=== PATIENT | female | born 1990 ===

== ENCOUNTER 2017-10-10 06:31 | Emergency (ER) | payer SELFPAY ==
[~2017-10-10] VITALS: Ht 177.8 cm; Wt 60.0 kg
[2017-10-10 06:44] VITALS: BP 131/80; PULSE 86; RESP 18; TEMP 97.9; O2SAT 100
[2017-10-10 07:06] LABS: AUTOMATED NEUTROPHIL # 2.3 TH/MM3 (1.8-7.7); BASOPHIL % 0.7 % (0.0-2.0); EOSINOPHIL % 0.8 % (0.0-4.0); HEMATOCRIT 32.1 % (35.0-46.0); HEMOGLOBIN 10.4 GM/DL (11.6-15.3); LYMPH % 28.6 % (9.0-44.0); MEAN CELL VOLUME 80.2 FL (80.0-100.0); MEAN CORPUSCULAR HEMOGLOBIN 26.1 PG (27.0-34.0); MEAN CORPUSCULAR HGB CONC 32.5 % (32.0-36.0); MEAN PLATELET VOLUME 7.6 FL (7.0-11.0); MONO % 7.1 % (0.0-8.0); MONOCYTE # 0.3 TH/MM3 (0-0.9); NEUT % 62.8 % (16.0-70.0); PLATELET COUNT 303 TH/MM3 (150-450); RED CELL DISTRIBUTION WIDTH 17.2 % (11.6-17.2); WHITE BLOOD COUNT 3.7 TH/MM3 (4.0-11.0)
--- NOTE | 2017-10-10 07:29 | PD ---
HPI Chief Complaint: Psychiatric Symptoms Time Seen by Provider: 07:25 Travel History International Travel<30 days: No Contact w/Intl Traveler<30days: No Traveled to known affect area: No History of Present Illness HPI 27-year-old female presents emergency department as a [place] act from [facility] for suicidal ideations. Patient says that her fianc broke up with her several days ago by phone call and she has not spoken with him since then. Says that she was talking with her friends last night when the police department showed up to [place] act her. Patient admits to discussing suicidal ideations however, she does not have a plan. Says she has a long history of suicide ideations but she has no intention acting upon these. She says that she has "lost" many people in her lives and she does not want to do the same to her family and friends. She denies chronic medical issues or medication use. She does admit to drinking alcohol last night. Denies any other illicit drug use. PFSH Past Medical History Medical History: Denies Significant Hx Diminished Hearing: No Tetanus Vaccination: Unknown Influenza Vaccination: No ?: Unknown LMP: CURRENT Past Surgical History Surgical History: No Previous Surgery Social History Alcohol Use: Yes (WEEKENDS 6-10 DRINKS ONE NIGHT PER WEEKEND) Tobacco Use: Yes (1PPD) Substance Use: No Allergies-Medications (Allergen,Severity, Reaction): Coded Allergies: No Known Allergies (Unverified , 10/10/17) Review of Systems Except as stated in HPI: all other systems reviewed are Neg Physical Exam Narrative GENERAL: Well-developed, well-nourished, slightly tearful and anxious SKIN: Focused skin assessment warm/dry. HEAD: Atraumatic. Normocephalic. EYES: Pupils equal and round. No scleral icterus. No injection or drainage. ENT: No nasal bleeding or discharge. Mucous membranes pink and moist. NECK: Trachea midline. No JVD. CARDIOVASCULAR: Regular rate and rhythm. No murmur appreciated. RESPIRATORY: No accessory muscle use. Clear to auscultation. Breath sounds equal bilaterally. No CVA tenderness MUSCULOSKELETAL: No obvious deformities. No clubbing. No cyanosis. No edema. NEUROLOGICAL: Awake and alert. No obvious cranial nerve deficits. Motor grossly within normal limits. Normal speech. PSYCHIATRIC: Tearful and slightly anxious. Data Data Last Documented VS Vital Signs Date Time Temp Pulse Resp B/P (MAP) Pulse Ox O2 Delivery O2 Flow Rate FiO2 10/10/17 06:44 97.9 86 18 131/80 (97) 100 Orders Orders Complete Blood Count With Diff (10/10/17 06:52) Comprehensive Metabolic Panel (10/10/17 06:52) Beta Hcg (Quant/Titer) (10/10/17 06:52) Ed Urine Pregnancytest Poc (10/10/17 06:52) Psych Screen (10/10/17 06:52) Drug Screen, Random Urine (10/10/17 06:52) Alcohol (Ethanol) (10/10/17 06:52) Salicylates (Aspirin) (10/10/17 06:52) Tylenol (Acetaminophen) (10/10/17 06:52) Diet Regular Basic (10/10/17 Breakfast) Diet Regular Basic (10/10/17 Lunch) Ed Discharge Order (10/10/17 17:45) Labs Laboratory Tests Test 10/10/17 06:50 10/10/17 06:56 White Blood Count 3.7 TH/MM3 Red Blood Count 4.00 MIL/MM3 Hemoglobin 10.4 GM/DL Hematocrit 32.1 % Mean Corpuscular Volume 80.2 FL Mean Corpuscular Hemoglobin 26.1 PG Mean Corpuscular Hemoglobin Concent 32.5 % Red Cell Distribution Width 17.2 % Platelet Count 303 TH/MM3 Mean Platelet Volume 7.6 FL Neutrophils (%) (Auto) 62.8 % Lymphocytes (%) (Auto) 28.6 % Monocytes (%) (Auto) 7.1 % Eosinophils (%) (Auto) 0.8 % Basophils (%) (Auto) 0.7 % Neutrophils # (Auto) 2.3 TH/MM3 Lymphocytes # (Auto) 1.0 TH/MM3 Monocytes # (Auto) 0.3 TH/MM3 Eosinophils # (Auto) 0.0 TH/MM3 Basophils # (Auto) 0.0 TH/MM3 CBC Comment DIFF FINAL Differential Comment Blood Urea Nitrogen 7 MG/DL Creatinine 0.84 MG/DL Random Glucose 101 MG/DL Total Protein 8.1 GM/DL Albumin 4.7 GM/DL Calcium Level 8.7 MG/DL Alkaline Phosphatase 57 U/L Aspartate Amino Transf (AST/SGOT) 15 U/L Alanine Aminotransferase (ALT/SGPT) 16 U/L Total Bilirubin 0.2 MG/DL Sodium Level 141 MEQ/L Potassium Level 3.5 MEQ/L Chloride Level 107 MEQ/L Carbon Dioxide Level 23.8 MEQ/L Anion Gap 10 MEQ/L Estimat Glomerular Filtration Rate 83 ML/MIN Human Chorionic Gonadotropin, Quant LESS THAN 1 MIU/ML Salicylates Level 2.7 MG/DL Acetaminophen Level LESS THAN 2.0 MCG/ML Ethyl Alcohol Level 208 MG/DL Urine Opiates Screen NEG Urine Barbiturates Screen NEG Urine Amphetamines Screen NEG Urine Benzodiazepines Screen NEG Urine Cocaine Screen NEG Urine Cannabinoids Screen NEG MDM Medical Decision Making Medical Screen Exam Complete: Yes Emergency Medical Condition: Yes Differential Diagnosis Depression, anxiety, suicidal ideations, malingering, alcohol intoxication Narrative Course 27-year-old female presents emergency department as a [place]field act from [place] [facility] for suicidal ideations. Patient says that her fianc broke up with her several days ago by phone call and she has not spoken with him since then. Says that she was talking with her friends last night when the police department showed up in [place] acted her. Patient admits to discussing suicidal ideations however, she does not have a plan. Says she has a long history of suicide ideations but she has no intention acting upon these. She says that she has "lost" many people in her lives and she does not want to do the same to her family and friends. She denies chronic medical issues or medication use. She does admit to drinking alcohol last night. Denies any other illicit drug use. Vital signs are stable. Labs are stable and consistent with patient's story of alcohol use. She is medically cleared to see psych. Diagnosis Primary Impression: Mood disorder Condition: Stable Dena Mccurdy October 10, 2017 07:29
[2017-10-10 07:34] LABS: ALBUMIN 4.7 GM/DL (3.4-5.0); ALKALINE PHOSPHATASE 57 U/L (45-117); ALT (GPT) 16 U/L (10-53); AST (GOT) 15 U/L (15-37); BICARBONATE 23.8 MEQ/L (21.0-32.0); BLOOD UREA NITROGEN 7 MG/DL (7-18); CALCIUM 8.7 MG/DL (8.5-10.1); CHLORIDE 107 MEQ/L (98-107); CREATININE 0.84 MG/DL (0.50-1.00); GLOMERULAR FILTRATION RATE 83 ML/MIN (>89); GLUCOSE,RANDOM 101 MG/DL (74-106); SODIUM (NA) 141 MEQ/L (136-145); TOTAL BILIRUBIN ADULT 0.2 MG/DL (0.2-1.0); TOTAL PROTEIN 8.1 GM/DL (6.4-8.2)
[2017-10-10 07:35] LABS: ACETAMINOPHEN LESS THAN 2.0 MCG/ML (10.0-30.0)
--- NOTE | 2017-10-10 17:04 | PD ---
History of Present Illness Chief Complaint: Psychiatric Symptoms Time Seen by Provider: 16:30 Travel History International Travel<30 Days: No Contact w/Intl Traveler<30days: No Known affected area: No Legal Status Legal Status: [place] Act Green[place] Act Signed By: Lele Garnica [place] Act Comment: Officer Sukhdev WelchKay # [id number] History of Present Illness: History of Present Illness HPI 27-year-old, single, -Tongan female with no previous psychiatric history presents emergency department as a Greenfield act from [place] [employer] . The [place] act alleges that the patient told a friend of hers that her fianc broke up with her and that he will come home to a body on the floor. That friend called the police. The patient was under the influence of alcohol at that time and arrived with a blood alcohol level of 208. EMR is reviewed. No previous contact with [facility] psychiatry. Patient was monitored in secure environment until she was clinically sober. She presented no behavioral concerns and no suicidality. Patient is seen. She is clinically sober. She is alert, oriented, calm and cooperative. The patient states" I was intoxicated and I did say things that are not regret. I wanted to get a reaction out of my fianc." The patient denies that she had any suicidal intent and further denies that she has never had any suicidal attempts in the past. She also states" I have had people in my life that have committed suicide and a no the pain that the survivors experience so I would never do that to my family". At this time the patient is requesting to be discharged and she has been in communication with her father. She plans on going to a friend's house and may be moving back to [place] to be close to her family. In terms of psychiatric history she denies any previous psychiatric history. Patient admits to binge drinking at least one time per week. She has a past history of excessive drinking and has a DUI. She has gone to alcohol classes as well as therapy for alcohol abuse. [facility] Past Medical History Medical History: Denies Significant Hx Diminished Hearing: No Tetanus Vaccination: Unknown Influenza Vaccination: No ?: Unknown LMP: CURRENT Past Surgical History Surgical History: No Previous Surgery Psychiatric History Psychiatric History Hx Psychiatric Treatment: Pt denies any psych history but had a dui and attended court appointed therapy. No previous history of suicide attempts. No history of self-injurious behavior. History of Inpatient Treatment: No Guns or firearms in home: No Social History Patient is born and raised in [place]. Patient moved to [place] 3 years ago. 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 She is engaged. Has been in current relationship for the past 3 years. Hx Alcohol Use: Yes (WEEKENDS 6-10 DRINKS ONE NIGHT PER WEEKEND) Hx Tobacco Use: Yes (1PPD) Hx Substance Use: No Substance Use Type: Alcohol Hx of Substance Use Treatment: Yes Family Psychiatric History Brother committed suicide. Allergies-Medications (Allergen,Severity, Reaction): Coded Allergies: No Known Allergies (Unverified , 10/10/17) Review of Systems Psychiatric: DENIES: Anxiety, Confusion, Mood changes, Depression, Hallucinations, Agitation, Suicidal Ideation, Homicidal Ideation, Delusions Except as stated in HPI: all other systems reviewed are Neg Mental Status Examination Appearance: Disheveled Consciousness: Alert Orientation: x4 Motor Activity: Normal gait Speech: Unremarkable Language: Adequate Fund of Knowledge: Adequate Attention and Concentration: Adequate Memory: Unremarkable Mood: Appropriate, Good Affect: Appropriate Thought Process & Associations: Intact, Logical, Goal directed Thought Content: Appropriate Hallucination Type: None Delusion Type: None Suicidal Ideation: No Suicidal Plan: No Suicidal Intention: No Homicidal Ideation: No Homicidal Plan: No Homicidal Intention: No Insight: Fair Judgment: Adequate [facility] Medical Decision Making Medical Record Reviewed: Yes Assessment/Plan History of Present Illness HPI 27-year-old female with history of alcohol use disorder who presents to the ED intoxicated with blood alcohol level of 208. Patient while under the effects of the alcohol told a friend that her fianc had broken up with her and that he will come home to a body on the floor. She did not make any attempt to harm herself. She denies any suicidal ideation, intent or plan. She acknowledges that the statements that she made were related to her level of intoxication. She has adequate insight into her use of alcohol. The patient presents no evidence of unstable mental illness. There is no chris, no hypomania, no psychosis. The patient does not endorse any suicidal or homicidal ideation, intent or plan. She is future oriented. She has supportive family members. The patient is requesting to be discharged and I have no grounds to hold her here against her well. I have provided her psychoeducation. The [place]field act as lifted. Psychiatric clear for discharge from the ED. Orders Orders Complete Blood Count With Diff (10/10/17 06:52) Comprehensive Metabolic Panel (10/10/17 06:52) Beta Hcg (Quant/Titer) (10/10/17 06:52) Ed Urine Pregnancytest Poc (10/10/17 06:52) Psych Screen (10/10/17 06:52) Drug Screen, Random Urine (10/10/17 06:52) Alcohol (Ethanol) (10/10/17 06:52) Salicylates (Aspirin) (10/10/17 06:52) Tylenol (Acetaminophen) (10/10/17 06:52) Diet Regular Basic (10/10/17 Breakfast) Diet Regular Basic (10/10/17 Lunch) Diet Regular Basic (10/10/17 Dinner) Results Vital Signs Date Time Temp Pulse Resp B/P (MAP) Pulse Ox O2 Delivery O2 Flow Rate FiO2 10/10/17 06:44 97.9 86 18 131/80 (97) 100 Laboratory Tests Test 10/10/17 06:50 10/10/17 06:56 White Blood Count 3.7 Red Blood Count 4.00 Hemoglobin 10.4 Hematocrit 32.1 Mean Corpuscular Volume 80.2 Mean Corpuscular Hemoglobin 26.1 Mean Corpuscular Hemoglobin Concent 32.5 Red Cell Distribution Width 17.2 Platelet Count 303 Mean Platelet Volume 7.6 Neutrophils (%) (Auto) 62.8 Lymphocytes (%) (Auto) 28.6 Monocytes (%) (Auto) 7.1 Eosinophils (%) (Auto) 0.8 Basophils (%) (Auto) 0.7 Neutrophils # (Auto) 2.3 Lymphocytes # (Auto) 1.0 Monocytes # (Auto) 0.3 Eosinophils # (Auto) 0.0 Basophils # (Auto) 0.0 CBC Comment DIFF FINAL Differential Comment Blood Urea Nitrogen 7 Creatinine 0.84 Random Glucose 101 Total Protein 8.1 Albumin 4.7 Calcium Level 8.7 Alkaline Phosphatase 57 Aspartate Amino Transf (AST/SGOT) 15 Alanine Aminotransferase (ALT/SGPT) 16 Total Bilirubin 0.2 Sodium Level 141 Potassium Level 3.5 Chloride Level 107 Carbon Dioxide Level 23.8 Anion Gap 10 Estimat Glomerular Filtration Rate 83 Human Chorionic Gonadotropin, Quant LESS THAN 1 Salicylates Level 2.7 Acetaminophen Level LESS THAN 2.0 Ethyl Alcohol Level 208 Urine Opiates Screen NEG Urine Barbiturates Screen NEG Urine Amphetamines Screen NEG Urine Benzodiazepines Screen NEG Urine Cocaine Screen NEG Urine Cannabinoids Screen NEG Diagnosis Primary Impression: alcohol abuse with intoxication Additional Impression: Alcohol-induced mood disorder Psychiatrically Cleared: Yes Med/ Other Pt Specific Info: No Meds Exist/No RX given Disposition: 01 DISCHARGE HOME Condition: Stable Problem Qualifiers Ann Gatica October 10, 2017 17:04
--- NOTE | 2017-10-10 17:47 | PD ---
Physical Exam Date Seen by Provider: October 10, 2017 Time Seen by Provider: 17:45 Narrative For full history and physical examination please see previous providers note. Data Data Last Documented VS Vital Signs Date Time Temp Pulse Resp B/P (MAP) Pulse Ox O2 Delivery O2 Flow Rate FiO2 10/10/17 06:44 97.9 86 18 131/80 (97) 100 Orders Orders Complete Blood Count With Diff (10/10/17 06:52) Comprehensive Metabolic Panel (10/10/17 06:52) Beta Hcg (Quant/Titer) (10/10/17 06:52) Ed Urine Pregnancytest Poc (10/10/17 06:52) Psych Screen (10/10/17 06:52) Drug Screen, Random Urine (10/10/17 06:52) Alcohol (Ethanol) (10/10/17 06:52) Salicylates (Aspirin) (10/10/17 06:52) Tylenol (Acetaminophen) (10/10/17 06:52) Diet Regular Basic (10/10/17 Breakfast) Diet Regular Basic (10/10/17 Lunch) Diet Regular Basic (10/10/17 Dinner) Ed Discharge Order (10/10/17 17:45) Labs Laboratory Tests Test 10/10/17 06:50 10/10/17 06:56 White Blood Count 3.7 TH/MM3 Red Blood Count 4.00 MIL/MM3 Hemoglobin 10.4 GM/DL Hematocrit 32.1 % Mean Corpuscular Volume 80.2 FL Mean Corpuscular Hemoglobin 26.1 PG Mean Corpuscular Hemoglobin Concent 32.5 % Red Cell Distribution Width 17.2 % Platelet Count 303 TH/MM3 Mean Platelet Volume 7.6 FL Neutrophils (%) (Auto) 62.8 % Lymphocytes (%) (Auto) 28.6 % Monocytes (%) (Auto) 7.1 % Eosinophils (%) (Auto) 0.8 % Basophils (%) (Auto) 0.7 % Neutrophils # (Auto) 2.3 TH/MM3 Lymphocytes # (Auto) 1.0 TH/MM3 Monocytes # (Auto) 0.3 TH/MM3 Eosinophils # (Auto) 0.0 TH/MM3 Basophils # (Auto) 0.0 TH/MM3 CBC Comment DIFF FINAL Differential Comment Blood Urea Nitrogen 7 MG/DL Creatinine 0.84 MG/DL Random Glucose 101 MG/DL Total Protein 8.1 GM/DL Albumin 4.7 GM/DL Calcium Level 8.7 MG/DL Alkaline Phosphatase 57 U/L Aspartate Amino Transf (AST/SGOT) 15 U/L Alanine Aminotransferase (ALT/SGPT) 16 U/L Total Bilirubin 0.2 MG/DL Sodium Level 141 MEQ/L Potassium Level 3.5 MEQ/L Chloride Level 107 MEQ/L Carbon Dioxide Level 23.8 MEQ/L Anion Gap 10 MEQ/L Estimat Glomerular Filtration Rate 83 ML/MIN Human Chorionic Gonadotropin, Quant LESS THAN 1 MIU/ML Salicylates Level 2.7 MG/DL Acetaminophen Level LESS THAN 2.0 MCG/ML Ethyl Alcohol Level 208 MG/DL Urine Opiates Screen NEG Urine Barbiturates Screen NEG Urine Amphetamines Screen NEG Urine Benzodiazepines Screen NEG Urine Cocaine Screen NEG Urine Cannabinoids Screen NEG MDM Medical Record Reviewed: Yes Supervised Visit with MELISSA: No Narrative Course Patient is a 27-year-old female presenting to the emergency department under [place] act. She was seen in the emergency department, medically cleared. She was then seen and evaluated by the psychiatric nurse practitioner. [place] act was lifted, please see her notes. Patient will be discharged home at this time. Diagnosis Primary Impression: alcohol abuse with intoxication Additional Impression: Alcohol-induced mood disorder Referrals: [facility] Patient Instructions: General Instructions Additional Instruction: Follow-up with Steven Castillo alcohol use Return to emergency department for any new or worsening symptoms Med/Other Pt SpecificInfo: No Meds Exist/No RX given Disposition: 01 DISCHARGE HOME Condition: Stable Lauren Gonzales October 10, 2017 17:47
== END 2017-10-10 18:23 | disposition home or self-care (01) ==
LOC: NEPJ 06:31
DX: F10.129 Alcohol abuse with intoxication, unspecified (principal); F10.14 Alcohol abuse with alcohol-induced mood disorder; F17.200 Nicotine dependence, unspecified, uncomplicated; Y90.7 Blood alcohol level of 200-239 mg/100 ml
CPT/HCPCS: 80053; 80307; 84702; 84703; 85025; 99284